=== PATIENT | female | born 1980 | race Caucasian/White ===

== ENCOUNTER 2017-03-27 09:09 | Day surgery (SDC) | payer OTHER ==
[2017-03-25 11:14] LABS: BASOPHILS 0.7 %; BASOPHILS ABSOLUTE 0.03 10/3/uL (0.0-0.16); EOSINOPHILS 2.5 %; EOSINOPHILS ABSOLUTE 0.11 10/3/uL (0.0-0.53); HEMOGLOBIN 13.9 g/dL (12.0-16.0); IMMATURE GRANULOCYTES 0.2 %; IMMATURE GRANULOCYTES ABSOLUTE 0.01 10/3/uL (0.0-0.11); LYMPHOCYTES 37.7 %; LYMPHOCYTES ABSOLUTE 1.63 10/3/uL (0.67-4.30); MEAN CORPUS HGB CONC 33.9 g/dL (32.0-36.0); MEAN CORPUSCULAR HEMOGLOB 29.2 pg (26.0-34.0); MEAN CORPUSCULAR VOLUME 86.1 fL (80-100); MEAN PLATELET VOLUME 11.3 fL (9.2-13.0); MONOCYTES ABSOLUTE 0.43 10/3/uL (0.21-1.20); NEUTROPHILS 48.9 %; NEUTROPHILS ABSOLUTE 2.11 10/3/uL (2.02-8.40); PLATELET COUNT 230 10/3/uL (150-400); RBC DISTRIBUTION WIDTH 12.8 % (12.0-16.0); RED CELL COUNT 4.76 10/6/uL (4.0-5.6); WHITE BLOOD CELLS 4.3 10/3/uL (4.5-10.5)
[2017-03-25 11:16] LABS: MANUAL DIFF NO %
[2017-03-25 11:23] LABS: BUN (BLOOD UREA NITROGEN) 13 MG/DL (6-23); CALCIUM, SERUM 8.9 MG/DL (8.5-10.4); CHLORIDE, SERUM 108 MMOL/L (96-112); CO2 (CARBON DIOXIDE) 29 MMOL/L (24-34); CREATININE 0.92 MG/DL (0.55-1.02); GFR AFRICAN AMERICAN 94 ML/MIN (>=60); GFR NON AFRICAN AMERICAN 81 ML/MIN (>=60); GLUCOSE, SERUM 88 MG/DL (60-99); POTASSIUM, SERUM 4.2 MMOL/L (3.5-5.3); SODIUM, SERUM 141 MMOL/L (135-148)
--- NOTE | ~2017-03-27 | OP ---
Record Of Operation [facility] [address] [place]. [address] NAME: DEANNE WALKER : 84 STATUS : [facility]#: [id number] AGE: 36 ADM/REG DATE : 03/27/17 MR#: [id number] REPORT SERV DATE: 03/30/17 DICTATED BY: UZMA COTTER DATE: 03/27/17 REPORT STATUS : Draft TRANSCRIBED BY: CHIRAG DATE: 03/27/17 DATE OF PROCEDURE: 03/27/2017 SURGEON: Uzma Cotter DPM. TOBACCO FLAVORER: Lorraine White DPM. PREOPERATIVE DIAGNOSES: Left lower extremity equinus secondary to cerebral palsy. Hammertoe deformity to the left 3rd, 4th, and 5th toe. POSTOPERATIVE DIAGNOSES: Left lower extremity equinus secondary to cerebral palsy. Hammertoe deformity to the left 3rd, 4th, and 5th toe. PROCEDURE: 1. Left open Achilles tendon lengthening with graft augmentation. 2. Posterior ankle capsulotomy. 3. Left hammertoe repair of toes 3, 4, and 5 consisting of 3rd PIPJ fusion, 4th PIPJ fusion, 5th PIPJ arthroplasty, left lower extremity cast application with postoperative nerve block. ANESTHESIA: General. HEMOSTASIS: Left thigh tourniquet set at 275 mmHg. ESTIMATED BLOOD LOSS: Minimal, 10 mL. MATERIALS UTILIZED: Arthrex ArthroFLEX patch. 0 Vicryl, 2-0 Vicryl, 3-0 Vicryl, 4-0 Vicryl, 3-0 Prolene, and 4-0 Prolene. 0.45 K-wire x2. INJECTABLES: 30 mL of 0.5% ropivacaine plain. COMPLICATION: None. SPECIMENS: None. CONDITION: Stable. JUSTIFICATION FOR PROCEDURE: The patient is a very pleasant, 36-year-old female, known to my practice with significant equinus to her left lower extremity as well as curly toe contracture and deformity to her 3rd, 4th, and 5th digits of her left foot. The patient has had multiple surgeries as adolescent due to her significant equinus to her left lower extremity consisting of multiple tendo-Achilles lengthening, but again due to recurrence of deformity, she is unable to have a plantigrade foot secondary to a seasonally type tight posterior capsule as well as tight tendo-Achilles. There is no spasticity to the deformity. The patient understands all the risks, benefits, alternatives, and postop course. The patient and her are adamantly requesting surgical intervention. They understand Record Of Operation [address] [place]. [address] NAME: DEANNE WALKER : 84 STATUS : [facility] PAT#: [id number] AGE: 36 ADM/REG DATE : 03/27/17 MR#: [id number] REPORT SERV DATE: 03/30/17 DICTATED BY: UZMA COTTER DATE: 03/27/17 REPORT STATUS : Draft TRANSCRIBED BY: CHIRAG DATE: 03/27/17 that this consists of approximately 6 weeks of nonweightbearing. The patient also understands again all the risks, benefits, alternatives, and postop course in detail. They have been explained to her by myself. The patient understands as in all surgeries, there are no guarantees, none of which have been given, stated, or implied. DESCRIPTION OF PROCEDURE: The patient was brought into the operating room and placed under anesthesia while on the gurney. Upon being placed under general anesthesia by Anesthesia Service, the patient was then flipped into the prone position onto the OR bed, taken care to significantly offload all bony prominences and offload all vital areas. A tourniquet was applied about to the left thigh and the left lower extremity was prepped, scrubbed, and draped in usual sterile fashion. At this time, after appropriate time-out was taken and confirmation that antibiotics are running, the left lower extremity was exsanguinated with an Esmarch bandage and the left lower extremity and the tourniquet inflated to 275 mmHg. A skin marker was utilized to plan out a medial posterior incision just medial to the Achilles tendon, approximately 8 cm in length. A 15 blade was utilized to make an incision down to subcutaneous layer taking care to identify and retract neurovascular structures and cauterize any bleeders. Dissection was continued down to the Achilles tendon. Taking significant care to identify all vital structures and cauterize all bleeders. Utilizing [place] scissors, blunt dissection was carefully performed with all the soft tissue above the Achilles tendon. With the Achilles tendon fully visualized, it should be noted that there was significant scar tissue to this area from previous surgeries. Ethibond suture was identified within the wound and within the Achilles tendon. At this time, a 15 blade was utilized to make an incision along the Achilles tendon in order to reflect the paratenon medially and laterally. Upon doing so, the Achilles tendon was fully visualized and a linear incision was made along the Achilles tendon along the 8 cm of the incision and distally the transverse incision was made medially and proximally another transverse incision was made laterally. This allowed us to obtain some correction of the deformity, although the patient's tight posterior capsule cause her to continue having equinus deformity upon release of the Achilles tendon. It should be noted that throughout this procedure, all soft tissue was carefully retracted utilizing sutures and hemostats to carefully retract it to prevent much handling of the soft tissue structures. At this time, a small incision was made within the intermuscular septum deep to the Achilles tendon and this was severed along the length of the Achilles tendon deep to the structure. The flexor hallucis longus was identified as well as the neurovascular bundle medially. Both flexor hallucis longus as well as the neurovascular bundle were carefully retracted medially as well as sural nerve and vital structures laterally. The posterior aspect of the tibia was carefully identified and tracked distally until we were at the ankle joint. At this time, posterior capsulotomy was performed, specifically releasing the posterior tibiotalar, talofibular, and tibiofibular ligament. We did not need to release the calcaneofibular ligament. We had adequate release at this time. There is no need to do a recession on FHL. There was ideal correction upon releasing the capsule. Record Of Operation [address] [address] NAME: DEANNE WALKER : 84 STATUS : [facility]#: [id number] AGE: 36 ADM/REG DATE : 03/27/17 MR#: [id number] REPORT SERV DATE: 03/30/17 DICTATED BY: UZMA COTTER DATE: 03/27/17 REPORT STATUS : Draft TRANSCRIBED BY: CHIRAG DATE: 03/27/17 This wound was copiously irrigated with sterile saline and attention was then redirected to the Achilles tendon. While holding the foot at plantar grade position of 90, in respect to the leg, a skin marker was utilized to ezequiel the Achilles tendon at ideal position. Utilizing 0 Vicryl, we reapproximated the Achilles tendon in its length and sliding sagittal Z position. Reapproximation was performed utilizing a cruciate suture fashion. Utilizing the ArthroFLEX patch, this was utilized to burrito the Achilles tendon to augment the repair and this was held in place utilizing 2-0 Vicryl. We had excellent correction deformity. The foot was at 90 degrees with significant care taken to prevent any over correction of the deformity. The paratenon was reapproximated utilizing 3-0 Vicryl along the length of the Achilles tendon followed by subcutaneous closure with 3-0 Vicryl and cutaneous reapproximation with 3 0 Prolene in a horizontal mattress fashion. 15 mL of 0.5% ropivacaine plain was injected along the incision site. Gauze and Tegaderm were applied to this area in order to keep the site sterile. At this time, the patient was flipped and the foot was re-prepped and draped. With significant care taken to prevent any damage to the Achilles repair, the foot was held in 90 and was not over stressed. Once the foot was again redraped and prepped, attention was directed to the left foot lesser digits 3, 4, 5 where a 15 blade was utilized to make a linear incision on the 3rd and 4th digits as well as an elliptical incision from distal medial to proximal lateral on the 5th digit in order to correct the adductovarus deformity. At this time, a 15 blade was utilized to make an incision in the skin down to subcutaneous layer, taking care to identify and retract neurovascular structures and cauterize any bleeders. This was done on all 3 toes. The incision was deepened down to the extensor tendon, which was identified. At this time, a tenotomy and capsulotomy was performed of the proximal interphalangeal joint of each toe 3rd, 4th, and 5th. A sagittal saw was utilized to resect the head of the proximal phalanx of the 3rd, 4th, and 5th toe. A was then also utilized to resect the base of the middle phalanx of the 3rd and 4th toe. Utilizing a 0.045 K-wire, this was antegraded through the base of the middle and distal phalanx of the 3rd and 4th toe and then retrograded into the proximal phalanx of the 3rd and 4th toe. This was checked with intrafluoroscopy and was noted to be ideal with ideal positioning. These two digits were rectus at this time. The K-wire was bent, cut, and capped with a [place] ball. Attention was then directed to the 5th toe with the resection of the head of the proximal phalanx, this was enough to correct the deformity. All these wounds were then irrigated at this time and 3-0 Vicryl was utilized for tendons reapproximation in simple suture fashion on the medial and lateral aspect of each respective tendon. Record Of Operation [facility] [address] [facility] [place]. [address] NAME: DEANNE WALKER : 84 STATUS : [facility]#: [id number] AGE: 36 ADM/REG DATE : 03/27/17 MR#: [id number] REPORT SERV DATE: 03/30/17 DICTATED BY: UZMA COTTER DATE: 03/27/17 REPORT STATUS : Draft TRANSCRIBED BY: CHIRAG DATE: 03/27/17 Cutaneous reapproximation was performed with 4-0 Prolene in a horizontal as well as simple suture fashion. At this time, the remaining 10 mL of ropivacaine plain was injected along all incision sites. We had excellent repair of her hammertoe deformity as well as our equinus deformity. The Tegaderm and gauze were removed at this time. All incisions were covered with Xeroform followed by copious gauze, ABD pad, Kerlix, and the left lower extremity was then placed in a very well-padded cast utilizing 5 rolls of cast padding and 3 rolls of fiberglass. The foot was held at 90 degrees to the leg in order to maintain the correction. It has been noted that tourniquet was deflated prior to closure of the toes and there was noted to be immediate hyperemic response to all the digits. The patient tolerated the procedure and anesthesia well, left the operating room, vital signs stable, neurovascular status intact to her left lower extremity. The patient will be transferred to recovery where nurses were asked to ice and elevate the left lower extremity. The patient will be instructed to keep the dressing clean, dry, intact, and again not to be significantly nonweightbearing to left lower extremity. The patient will be followed up with me in 3-5 days. Has been instructed on all signs of infection as well as DVT. The patient will begin taking aspirin daily during the postoperative period in order to prevent blood clot, but she understands all the signs and symptoms, and is to call myself immediately or report to the emergency room if any of the signs or symptoms should occur. PRITESH/CHIRAG Uzma Cotter DPM / [id number] CC: FABIO Caruso IV, MD
[~2017-03-27 09:09] MED LIST: LOESTRIN 21 PO; PCET PO
== END 2017-03-27 19:00 | disposition home or self-care (01) ==
LOC: SDC 09:09
PROVIDERS: Podiatrist
PROC: 0SGQ0ZZ (ICD-10-PCS; 2017-03-27)
PROC: 0QBR0ZZ Excision of Left Toe Phalanx, Open Approach (ICD-10-PCS; 2017-03-27)
PROC: 0SNQ0ZZ Release Left Toe Phalangeal Joint, Open Approach (ICD-10-PCS; 2017-03-27)
PROC: 0L8W0ZZ Division of Left Foot Tendon, Open Approach (ICD-10-PCS; 2017-03-27)
PROC: 0SRQ0JZ Replacement of Left Toe Phalangeal Joint with Synthetic Substitute, Open Approach (ICD-10-PCS; 2017-03-27)
PROC: 0L8T0ZZ Division of Left Ankle Tendon, Open Approach (ICD-10-PCS; principal; 2017-03-27 10:15)
PROC: 0SNG0ZZ Release Left Ankle Joint, Open Approach (ICD-10-PCS; 2017-03-27 10:15)
DX: M20.42 Other hammer toe(s) (acquired), left foot (principal); M21.6X2 Other acquired deformities of left foot; G80.9 Cerebral palsy, unspecified; E16.2 Hypoglycemia, unspecified; K21.9 Gastro-esophageal reflux disease without esophagitis; R07.9 Chest pain, unspecified; Z88.0 Allergy status to penicillin; Z88.8 Allergy status to other drugs, medicaments and biological substances; Z98.890 Other specified postprocedural states
CPT/HCPCS: 73630-LT; 80048; 84703; 85025; 93005; J1170; J2250; J2405; J2550; J2710; J2795; J3010; J3370; Q4125